=== PATIENT | male | born 1955 | race Hispanic/Latino ===

== ENCOUNTER 2016-08-26 17:04 | Emergency (ER) | payer OTHER ==
[2016-08-26 18:17] LABS: Anion Gap 22 mmol/L; BUN/Creatinine Ratio 15.71; Blood Urea Nitrogen 11 mg/dL (9-20); Calcium 9.3 mg/dL (8.4-10.2); Carbon Dioxide 23 mmol/L (22-30); Chloride 97.9 mmol/L (98-107); Glucose 111 mg/dL (75-100); Potassium 4.1 mmol/L (3.6-5.0); Sodium 139 mmol/L (137-145)
[2016-08-26 18:19] LABS: Basophils % (Auto) 2.7 % (0.0-1.8); Eosinophils % (Auto) 5.1 % (0.0-4.3); Hematocrit 40.3 % (35.5-45.6); Hemoglobin 13.8 gm/dl (11.8-15.2); Mean Corpuscular HGB Conc 34 % (32-34); Mean Corpuscular Hemoglobin 32 pg (28-32); Mean Corpuscular Volume 93 fl (84-94); Platelet Count 294 K/mm3 (140-440); Red Blood Count 4.35 M/mm3 (3.65-5.03); Red Cell Distribution Width 13.1 % (13.2-15.2); White Blood Count 7.6 K/mm3 (4.5-11.0)
[2016-08-26 18:53] LABS: Urine Drugs of Abuse Note Disclamer
[2016-08-26 19:25] LABS: Bacteria,Urine 1+ /HPF (Negative); Bilirubin,Urine NEG (Negative); Blood,Urine NEG (Negative); Ketones,Urine TR mg/dL (Negative); Leukocyte Esterase,Urine NEG (Negative); Mucus,Urine 1+ /HPF; Nitrite,Urine NEG (Negative); Protein,Urine <15 mg/dL mg/dL (Negative)
[2016-08-26] MEDS ORDERED: ATIVAN ONE (22:45)
[2016-08-26] MEDS ORDERED: ATIVAN PO ONE (22:50)
--- NOTE | 2016-08-27 00:19 | Emergency Department Report ---
HPI - General Chief Complaint: Alcohol Time Seen by Provider: 08/27/16 00:05 - HPI HPI: This is a 60-year-old male who presents to the emergency department with the request for occult detox and hoping to go to [place]. The patient says that he has a history of alcoholism and has been on a drinking binge for the past 3 months. He drinks about one half gallon of vodka and 12 beers per day and last had a drink about 3 PM today. The patient says he feels like he is "going out of my skin" and says that he has a history of DTs and/or withdrawal symptoms. He denies any illicit drug abuse. He otherwise has no complaints of chest pain, fever, nausea, vomiting. He denies any suicidal or homicidal ideations or any auditory or visual hallucinations. ED Past Medical Hx - Past Medical History Hx Psychiatric Treatment: Yes (BIPOLAR / ANXIETY) Additional medical history: alcoholic / ALCOHOL ABUSE - Surgical History Past Surgical History?: No - Social History Smoking Status: Current Every Day Smoker Substance Use Type: Alcohol - Medications Home Medications: Home Medications Medication Instructions Recorded Confirmed Last Taken Type No Known Home Medications [No 10/02/13 10/02/13 Unknown History Reported Home Medications] ED Review of Systems ROS: Stated complaint: MH/EVAL Other details as noted in HPI Comment: All other systems reviewed and negative Constitutional: denies: chills, fever Eyes: denies: eye pain, eye discharge, vision change ENT: denies: ear pain, throat pain Respiratory: denies: cough, shortness of breath, wheezing Cardiovascular: denies: chest pain, edema Gastrointestinal: denies: abdominal pain, vomiting Genitourinary: denies: urgency, dysuria Musculoskeletal: denies: back pain, joint swelling, arthralgia Skin: denies: rash, lesions Neurological: denies: headache, numbness Physical Exam - Physical Exam Vital Signs: Vital Signs 08/26/16 17:39 Temperature 98.8 F Pulse Rate 95 H Respiratory 17 Rate Blood Pressure 106/77 O2 Sat by Pulse 98 Oximetry Physical Exam: GENERAL: The patient is well-developed well-nourished. HEENT: Normocephalic. Atraumatic. Extraocular motions are intact. Patient has moist mucous membranes. Pupils equal reactive to light bilaterally. NECK: Supple. Trachea is midline. CHEST/LUNGS: Clear to auscultation. There is no respiratory distress noted. HEART/CARDIOVASCULAR: Regular. There is no tachycardia. There is no gallop rub or murmur. ABDOMEN: Abdomen is soft, nontender. Patient has normal bowel sounds. There is no abdominal distention. SKIN: Skin is warm and dry. NEURO: The patient is awake, alert, and oriented. The patient is cooperative. The patient has no focal neurologic deficits. The patient has normal speech. Cranial nerves II-12 grossly intact. MUSCULOSKELETAL: There is no tenderness or deformity. There is no limitation range of motion. There is no evidence of acute injury. ED Course Vital Signs 08/26/16 17:39 Temperature 98.8 F Pulse Rate 95 H Respiratory 17 Rate Blood Pressure 106/77 O2 Sat by Pulse 98 Oximetry ED Medical Decision Making - Lab Data Result diagrams: 08/26/16 17:47 08/26/16 17:47 - Medical Decision Making 60-year-old male with history of 3 months drinking binge presents for alcohol detoxification and medical clearance and he can go to [place]. Blood alcohol level was about 0.23 upon arrival but upon reevaluation his blood alcohol is down 2.11 and at this point is probably under the legal limit. The rest the labs are unremarkable. The patient says he has some history of either delirium tremens or strong withdrawal symptoms, he currently does not appear to be in any acute distress. Vital signs of in stable throughout his ED course as far. He will be given some thiamine and multivitamin. He will be given a little bit of Ativan as needed for helping with withdrawals. The crisis therapist has been contacted to assist with a voluntary placement for alcohol detox. - Differential Diagnosis alcohol intoxication, alcohol withdrawal Critical Care Time: No Critical care attestation.: If time is entered above; I have spent that time in minutes in the direct care of this critically ill patient, excluding procedure time. ED Disposition Clinical Impression: Alcohol abuse, Medical clearance for psychiatric admission Alcohol intoxication Qualifiers: Complication of substance-induced condition: uncomplicated Qualified Code(s): F10.920 - Alcohol use, unspecified with intoxication, uncomplicated Disposition: DC/TX-65 PSY HOSP/PSY UNIT Is pt being admited?: No Condition: Stable Referrals: PRIMARY CARE, [Primary Care Provider] - 3-5 Days Time of Disposition: 03:11
[2016-08-27 12:28] VITALS: BP 166/84
== END 2016-08-27 17:39 ==
LOC: ED 17:04 → EEVIPCON 17:04 → ED 08-27 17:39
DX: F10.129 Alcohol abuse with intoxication, unspecified (principal); Z00.8 Encounter for other general examination; F31.9 Bipolar disorder, unspecified; F41.9 Anxiety disorder, unspecified; F17.200 Nicotine dependence, unspecified, uncomplicated
CPT/HCPCS: 36415; 80048; 80307; 81001; 82962; 85025; 99285; G0480; 80320

== ENCOUNTER 2017-05-13 23:28 | Emergency (ER) | payer OTHER ==
[2017-05-14 01:12] LABS: Basophils # (Auto) 0.1 K/mm3 (0.0-0.1); Eosinophils % (Auto) 0.4 % (0.0-4.3); Hematocrit 41.1 % (35.5-45.6); Hemoglobin 14.5 gm/dl (11.8-15.2); Lymphocytes # (Auto) 1.9 K/mm3 (1.2-5.4); Lymphocytes % (Auto) 18.3 % (13.4-35.0); Mean Corpuscular HGB Conc 35 % (32-34); Mean Corpuscular Hemoglobin 32 pg (28-32); Mean Corpuscular Volume 91 fl (84-94); Monocytes # (Auto) 1.2 K/mm3 (0.0-0.8); Monocytes % (Auto) 11.8 % (0.0-7.3); Platelet Count 316 K/mm3 (140-440); Red Blood Count 4.51 M/mm3 (3.65-5.03); Red Cell Distribution Width 13.4 % (13.2-15.2)
[2017-05-14 01:22] LABS: BUN/Creatinine Ratio 11; Blood Urea Nitrogen 8 mg/dL (9-20); Hemolysis Index 4
[2017-05-14 01:47] LABS: Bacteria,Urine 1+ /HPF (Negative); Bilirubin,Urine NEG (Negative); Blood,Urine MOD (Negative); Color,Urine Straw (Yellow); Protein,Urine <15 mg/dL mg/dL (Negative); Urobilinogen,Urine < 2.0 mg/dL (<2.0); WBC,Urine < 1.0 /HPF (0.0-6.0)
[2017-05-14 01:54] LABS: Amphetamine Screen,Urine PRESUMPTIVE NEGATIVE; Benzodiazepines Screen,Urine PRESUMPTIVE NEGATIVE; Cannabinoid Screen,Urine PRESUMPTIVE NEGATIVE; Cocaine Screen,Urine PRESUMPTIVE NEGATIVE; Methadone Screen,Urine PRESUMPTIVE NEGATIVE; Opiate Screen,Urine PRESUMPTIVE NEGATIVE
[2017-05-14] MEDS ORDERED: ATIVAN PO ONE (02:23)
--- NOTE | 2017-05-14 02:30 | Emergency Department Report ---
ED Alcohol HPI - General Chief Complaint: Alcohol Stated Complaint: DETOX Time Seen by Provider: 05/14/17 02:23 Source: patient Mode of arrival: Ambulatory Limitations: No Limitations - History of Present Illness Initial Comments: 61-year-old male comes in reporting that he is detoxing. Patient reports that his last drink was about 9 PM. He denies any nausea vomiting denies chest pain denies shortness of breathing denies abdominal pain. He reports his last drink was about 9 PM of wine. He reports he has not eaten today denies any dysuria no recent traumas and reports he drinks every day. Patient has not been on his antipsychotic medications. MD Complaint: alcohol intoxication Last Drink: just [employer] Time Since Last Drink: 9 Chronic Alcohol Use: Yes Previous Visits for Alcohol Intoxication?: Yes Recent Trauma: No Associated Symptoms: other (anxiety) - Related Data Home Medications Medication Instructions Recorded Confirmed Last Taken No Known Home Medications [No 10/02/13 10/02/13 Unknown Reported Home Medications] Allergies Allergy/AdvReac Type Severity Reaction Status Date / Time No Known Allergies Allergy Verified 08/26/16 17:43 ED Review of Systems ROS: Stated complaint: DETOX Other details as noted in HPI Constitutional: denies: chills, fever Eyes: denies: eye pain, eye discharge, vision change ENT: denies: ear pain, throat pain Respiratory: denies: cough, shortness of breath, wheezing Cardiovascular: denies: chest pain, palpitations Endocrine: no symptoms reported Gastrointestinal: denies: abdominal pain, nausea, diarrhea Genitourinary: denies: urgency, dysuria Musculoskeletal: denies: back pain, joint swelling, arthralgia Skin: denies: rash, lesions Neurological: denies: headache, weakness, paresthesias Psychiatric: anxiety ("I feel like I want to jump out of my skin"). denies: depression Hematological/Lymphatic: denies: easy bleeding, easy bruising ED Past Medical Hx - Past Medical History Previous Medical History?: Yes Hx Psychiatric Treatment: Yes (BIPOLAR / ANXIETY /depression) Additional medical history: alcoholic / ALCOHOL ABUSE - Surgical History Past Surgical History?: No - Social History Smoking Status: Current Every Day Smoker Substance Use Type: Alcohol - Medications Home Medications: Home Medications Medication Instructions Recorded Confirmed Last Taken Type No Known Home Medications [No 10/02/13 10/02/13 Unknown History Reported Home Medications] ED Physical Exam - General Limitations: No Limitations General appearance: alert, in no apparent distress - Head Head exam: Present: atraumatic, normocephalic - Eye Eye exam: Present: normal appearance - ENT ENT exam: Present: mucous membranes moist - Neck Neck exam: Present: normal inspection - Respiratory Respiratory exam: Present: rhonchi - Cardiovascular Cardiovascular Exam: Present: tachycardia - GI/Abdominal GI/Abdominal exam: Present: soft, normal bowel sounds - Rectal Rectal exam: Present: deferred - Extremities Exam Extremities exam: Present: normal inspection, full ROM - Back Exam Back exam: Present: normal inspection, full ROM - Neurological Exam Neurological exam: Present: alert, oriented X3 ED Course Vital Signs 05/14/17 05/14/17 05/14/17 00:20 00:36 03:05 Temperature 97.5 F L 97.5 F L Pulse Rate 102 H 102 H Respiratory 18 18 18 Rate Blood Pressure 129/90 129/90 Blood Pressure [Left] O2 Sat by Pulse 93 93 95 Oximetry 05/14/17 03:12 Temperature Pulse Rate 66 Respiratory 16 Rate Blood Pressure Blood Pressure 118/82 [Left] O2 Sat by Pulse 96 Oximetry ED Medical Decision Making - Lab Data Result diagrams: 05/14/17 00:53 05/14/17 00:53 - Medical Decision Making Patient has been evaluated by this provider fast track. We'll give patient Ativan 1 mg to help with the anxiety. Critical care attestation.: If time is entered above; I have spent that time in minutes in the direct care of this critically ill patient, excluding procedure time. ED Disposition Clinical Impression: Alcohol intoxication Qualifiers: Complication of substance-induced condition: uncomplicated Qualified Code(s): F10.920 - Alcohol use, unspecified with intoxication, uncomplicated Disposition: DC-01 TO HOME OR SELFCARE Is pt being admited?: No Does the pt Need Aspirin: No Condition: Stable Instructions: Alcohol Intoxication (ED), Abuse of Alcohol (ED) Additional Instructions: Please refrain from drinking alcohol. I highly recommended free to get any alcohol rehabilitation. Referrals: PRIMARY CARE, [Primary Care Provider] - 3-5 Days [facility] [Provider Group] - 3-5 Days
[2017-05-14] MEDS ORDERED: 1: FOLVITE 1 MG, INFUVITE 10 ML in NACL 0.9% 1000 ML 988.8 ML 2: NACL 0.9% 1000 ML 1,00 IV SCH (03:00)
[2017-05-14 09:16] VITALS: BP 117/80
[2017-05-14] MEDS ORDERED: VITAMIN B-1 PO SCH (10:00)
== END 2017-05-14 10:25 | disposition home or self-care (01) ==
LOC: ED 23:28
DX: F10.920 Alcohol use, unspecified with intoxication, uncomplicated (principal); F32.9 Major depressive disorder, single episode, unspecified; F41.9 Anxiety disorder, unspecified; F17.200 Nicotine dependence, unspecified, uncomplicated
CPT/HCPCS: 36415; 80048; 80307; 81001; 85025; 96365; 96366; 99283; G0480; J7030; 80320

== ENCOUNTER 2017-05-14 11:11 | Emergency (ER) | payer OTHER ==
--- NOTE | 2017-05-15 02:16 | Emergency Department Report ---
HPI - General Chief Complaint: Alcohol Time Seen by Provider: 05/15/17 02:06 - [facility] HPI: Room 18 The patient is a 7-year-old male presenting with chief complaint of alcoholism. The patient states almost immediately after being discharged last night he began to feel high anxiety" with "shakiness" and sweating. The patient was concerned he was going to have a seizure secondary to alcohol withdrawal. The patient states he left the triage and consumed a bottle of wine approximately 3 hours ago. The patient states he desires detox from alcohol Location: [See above] Duration: [See above] Quality: "Shakiness" Severity: [See above] Modifying factors: [see above] Context: [see above] Mode of transportation: [not driving] ED Past Medical Hx - Past Medical History Hx Psychiatric Treatment: Yes (BIPOLAR / ANXIETY /depression) Additional medical history: alcoholic / ALCOHOL ABUSE - Surgical History Past Surgical History?: No - Family History Family history: no significant - Social History Smoking Status: Current Every Day Smoker (1 pack per day) Substance Use Type: Alcohol (1/2 gallon of wine daily) - Medications Home Medications: Home Medications Medication Instructions Recorded Confirmed Last Taken Type No Known Home Medications [No 10/02/13 10/02/13 Unknown History Reported Home Medications] ED Review of Systems ROS: Stated complaint: DETOX Other details as noted in HPI Constitutional: diaphoresis Neurological: other ("shakiness") Psychiatric: anxiety Physical Exam - Physical Exam Vital Signs: Vital Signs 05/14/17 11:49 Temperature 97.8 F Pulse Rate 108 H Respiratory 18 Rate Blood Pressure 130/99 O2 Sat by Pulse 95 Oximetry Physical Exam: GENERAL: The patient is well-developed well-nourished male lying on stretcher not appearing to be in acute distress. [] HEENT: Normocephalic. Atraumatic. Extraocular motions are intact. Patient has moist mucous membranes. NECK: Supple. Trachea midline CHEST/LUNGS: Clear to auscultation. There is no respiratory distress noted. HEART/CARDIOVASCULAR: Regular. There is no tachycardia. There is no gallop rub or murmur. ABDOMEN: Abdomen is soft, nontender. Patient has normal bowel sounds. There is no abdominal distention. SKIN: There is no rash. There is no edema. There is no diaphoresis. NEURO: The patient is awake, alert, and oriented. The patient is cooperative. The patient has no focal neurologic deficits. The patient has normal speech. Cranial nerves II through XII grossly intact, no drift. There is no tremulousness noted MUSCULOSKELETAL: There is no evidence of acute injury. ED Course Vital Signs 05/14/17 11:49 Temperature 97.8 F Pulse Rate 108 H Respiratory 18 Rate Blood Pressure 130/99 O2 Sat by Pulse 95 Oximetry ED Medical Decision Making - Lab Data Laboratory Tests 05/15/17 02:24 Plasma/Serum Alcohol 0.07 - Differential Diagnosis alcoholism Critical care attestation.: If time is entered above; I have spent that time in minutes in the direct care of this critically ill patient, excluding procedure time. ED Disposition Clinical Impression: Alcoholism Disposition: DC/TX-65 PSY HOSP/PSY UNIT Is pt being admited?: No Does the pt Need Aspirin: No Condition: Stable Referrals: PRIMARY CARE, [Primary Care Provider] - 3-5 Days Time of Disposition: 05:15 (waiting recommendations from the )
[2017-05-15] MEDS ORDERED: ATIVAN IV PRN ×3 (05:16)
--- NOTE | 2017-05-15 12:49 | Consultation ---
History of Present Illness - Reason for Consult Consult date: 05/15/17 Reason for consult: Mental Health Evaluation Requesting physician: DANIELITO NELSON - Chief Complaint Chief complaint: "I want to stop drinking" - History of Present Psychiatric Illness 61-year-old white male presenting with chief complaint of alcoholism. Today the patient is calm and cooperative during the assessment. He stated that he need help because he want to stop drinking alcohol (etoh). He stated that he been drinking since he was teenager. He stated that he suffer from depression, because of his drinking. He stated that he took Prozac for several years, but he didn't like the way the medication made him feel. He stated that he would like to take another antidepressant. He rate his depression, 5/10, with 10 being the worse. He stated that he originally came to the hospital for detox, but was discharged and returned because he felt like he should not have been discharged so "fast." He stated that he came to the hospital for help. He stated that his alcoholism has caused him lots of "anguish" in his life. He stated that he was sober for several years until 2 weeks ago. He stated that he relapsed because he thought he could handle one drink. He denies SI/HI's and AVH 's. He denies any manic episodes, erratic sleep, or a poor appetite. He denies recreational drug use. Medications and Allergies Allergies Allergy/AdvReac Type Severity Reaction Status Date / Time No Known Allergies Allergy Verified 05/14/17 11:49 Home Medications Medication Instructions Recorded Confirmed Last Taken Type No Known Home Medications [No 10/02/13 10/02/13 Unknown History Reported Home Medications] Active Meds: Active Medications Lorazepam (Ativan) 2 mg IV Q1HR PRN PRN Reason: CIWA-Ar 8-15 Lorazepam (Ativan) 4 mg IV Q1HR PRN PRN Reason: CIWA-Ar 16-25 Lorazepam (Ativan) 4 mg IV Q15MIN PRN PRN Reason: CIWA-Ar >25 Past psychiatric history - Past Medical History Past Medical History: No medical history Past Surgical History: No surgical history - past Psychiatric treatment and history psychiatric treatment history: The patient stated a hx of depression and took Prozac in the past. He denies a fam psy hx. - Social History Social history: Lives alone Mental Status Exam - Vital signs Last Vital Signs Temp 97.9 F 05/15/17 08:08 Pulse 74 05/15/17 08:08 Resp 16 05/15/17 08:08 BP 95/67 05/15/17 08:08 Pulse Ox 97 05/15/17 08:08 - Exam Narrative exam: MSE: Appearance: calm, cooperative Behavior: regular eye contact Speech: regular rate and tone Mood: "okay but depressed" Affect: congruent to mood Thought Process: logical Thought Content: denies SI/HI's and AVH's Motor Activity: lying in bed Cognition: A/O x3 Insight: appropriate Judgment: appropriate Results All other labs normal. Assessment and Plan Assessment and plan: Impression: MDD. Alcohol Use DO. Today the patient is calm and cooperative during the assessment. Recommendation/Plan: Start Zoloft 50 mg PO daily for depression. Discussed possible suicidality/medication induced alyce with patient reference Zoloft. Patient volunteers for inpatient psy/rehab services at [facility]. The patient is pending transport time.
[2017-05-15] MEDS ORDERED: ZOLOFT PO SCH (14:00)
[2017-05-15 15:37] VITALS: BP 105/61
== END 2017-05-15 17:25 ==
LOC: ED 11:11
DX: F10.20 Alcohol dependence, uncomplicated (principal); F17.200 Nicotine dependence, unspecified, uncomplicated; F31.9 Bipolar disorder, unspecified
CPT/HCPCS: 36415; 96374; 99285; G0480; J2060; 80320